=== PATIENT | female | born 2005 | race Caucasian/White ===

== ENCOUNTER 2024-04-03 17:12 | Emergency (ER) | payer OTHER, SELFPAY ==
[2024-04-03 17:12] VITALS: BMI 18.2
[2024-04-03 17:30] VITALS: BP 105/61
--- NOTE | 2024-04-03 20:31 | ED.GENMED ---
History of Present Illness
General
Chief Complaint: Abdominal Symptoms
Time Seen by Provider: 04/03/24 20:31
Travel History
Have you had any contact with someone who has COVID-19?: No
Do you have any symptoms of coronavirus? Fever > 100 degrees, chills, cough, shortness of breath, sore throat, loss of taste or smell, muscle aches, or headache?: No
History of Present Illness
History of Present Illness:
HPI: The patient presents with nausea and vomiting and periumbilical pain associated with some degree of diarrhea that started about 8 hours ago. She had a similar less severe episode a few weeks ago that was self-limited after a day. Mother also
reports that the mom has had 1 unexplained episode of pancreatitis when she was her age.
EXAM:
GENERAL: Well appearing in no significant distress
HEENT: Moist oral mucosa
CARDIOVASCULAR: No murmurs, normal heart rate, regular rhythm, No chest wall tenderness
PULMONARY: No respiratory distress, breath sounds are clear and equal
ABDOMEN: Soft with no peritoneal signs, mild periumbilical tenderness, no tenderness in the left lower or right lower quadrants, there is minimal tenderness in the right upper quadrant
NEUROLOGIC: Excellent strength all extremities, no coordination deficits
PSYCHIATRIC: Appropriate mental status, normal insight and judgement
EXTREMITIES: Nontender, no edema, moves all extremities equally
SKIN: No rash, no lesions
TIME OF INITIAL ENCOUNTER: 8:30 PM
NUMBER AND COMPLEXITY OF PROBLEMS ADDRESSED AT THE ENCOUNTER
� Chronic conditions affecting care: History of asthma
� Acute Exacerbation and/or Progression of Chronic Illness: This is an acute problem
� Differential Diagnosis includes: Gastroenteritis, viral syndrome, pancreatitis unlikely
AMOUNT AND/OR COMPLEXITY OF DATA TO BE REVIEWED AND ANALYZED
� I performed an independent evaluation of and my interpretation is:
EKG:
CT:
X-rays:
Laboratory Studies: White count 19.9, hemoglobin normal, chemistries unremarkable, lipase is 85, CMP normal
Other:
� Review of other/old records: I reviewed old records, the white count in 2013 was normal
� Clinical information was obtained by an independent historian: I spoke to the mother at bedside
� Prescriptions/Medications Considered but not given:
� Further testing considered but not performed: Given the leukocytosis, considered CT imaging however the patient is a young female with vomiting and diarrhea and overall has improved with conservative measures here.
RISK OF COMPLICATIONS AND/OR MORBIDITY OR MORTALITY OF PATIENT MANAGEMENT
� Social determinants of health affecting care: Lives at home
� Discussion with other providers:
� Escalation of care including admission/observation vs risk of discharge considered: The patient does report improvement after fluids, Toradol, Pepcid, and Zofran. I sent a prescription for both Zofran and Bentyl. She is
encouraged to follow-up with GI as well. I informed them of the leukocytosis however given the overall improvement with associated diarrhea as well, I suspect CT imaging will be of little benefit. If symptoms worsen, they are encouraged to return.
Past History
Social History
Tobacco: Non-smoker
Alcohol: None
Drug: None
Phy Exam
Physical Exam
Physical Exam:
See HPI
Course
Orders/Labs/Results
Orders:
Orders
04/03/24 20:37
0.9% Sodium Chloride 1000 ml [Nss] 1,000 ml IV BOLUS
Famotidine [Pepcid] 20 mg IV NOW STA
Ketorolac [Toradol] 15 mg IV NOW STA
Ondansetron Injectable [Zofran] 4 mg IV NOW STA
04/03/24 21:12
Complete Blood Count/With Diff Urgent
Comprehensive Metabolic Panel Urgent
HCG, Serum Qualitative Screen Urgent
Comment: ADD ON
Lipase Urgent
04/03/24 21:51
Add On- LAB Urgent
Tests Added?: hcg screen
Abnormal Lab Results
04/03/24
21:12
WBC 19.9 H 10^3/uL
(4.8-10.8)
MPV 10.7 H fL
(7.4-10.4)
Abs Immat Gran (auto) 0.1 H 10^3/uL
(0-0.05)
Absolute Neuts (auto) 18.8 H 10^3/uL
(1.4-6.5)
Absolute Lymphs (auto) 0.5 L 10^3/uL
(1.2-3.4)
Neutrophils % 94.2 H %
(42.2-75.2)
Lymphocytes % 2.7 L %
(20.5-51.1)
Monocytes % 1.6 L %
(1.7-9.3)
Glucose 114 H mg/dl
(70-99)
Total Protein 8.4 H g/dl
(6.3-8.2)
04/03/24 21:12
04/03/24 21:12
Vital Signs
Initial and Last Documented VS:
Initial Vital Signs
Temp Pulse Resp BP Pulse Ox
98.7 F 95 18 105/61 100
04/03/24 17:30 04/03/24 17:30 04/03/24 17:30 04/03/24 17:30 04/03/24 17:30
Last Documented Vital Signs
Temp Pulse Resp BP Pulse Ox
98.7 F 81 18 111/71 99
04/03/24 17:30 04/03/24 21:32 04/03/24 21:32 04/03/24 21:32 04/03/24 21:32
*Critical Care Note
Total Time (30-74mins, 75-104mins- exclusive of procedures): Not Applicable
ED Attending Note
-
Portions of this chart may have been created with voice recognition software.� Occasional wrong word or��sound alike� substitutions may have occurred due to the inherent limitations of voice recognition software.
Discharge Plan
Departure
Patient Disposition: Home (Routine Discharge)
Date of Disposition: 04/03/24
Time of Disposition: 22:32
Patient with high blood pressure during this ER visit?: No
Discharge Problem:
Abdominal pain
Instructions: Abdominal Pain
Prescriptions:
New
dicyclomine 10 mg capsule
10 mg PO TID PRN (Reason: pain) Qty: 21 0RF
ondansetron HCl 4 mg tablet
4 mg PO DAILY PRN (Reason: nausea and vomiting) Qty: 10 0RF
No Action
prednisone 50 MG tablet
50 mg PO DAILY Qty: 4 0RF
albuterol sulfate 1 PUFF HFA aerosol inhaler
2 puff inhalation R Q4HPRN PRN (Reason: shortness of breath) Qty: 1 0RF
Referrals:
Estrellita Villareal MD [Family Provider] -
Sonia Fuentes MD [Active] - Follow up in 2-3 days
Activity Restrictions/Additional Instructions:
I sent a prescription to your pharmacy for both Zofran (nausea medicine) as well as Bentyl (antispasmodic medicine). You could also try Pepcid and intermittent use of Motrin as well. I have also given you the contact information for a local GI
�DrEllie Fuentes. Your white blood cell count is high. If your symptoms worsen, please return here.
Interventions
Interventions:
*Risk Screen - Suicide Last Done: 04/03/24 17:30
*General Assessment Last Done: 04/03/24 17:30
*Neglect/Abuse Screening Last Done: 04/03/24 17:30
ED- Fall Risk Assessment Last Done: 04/03/24 21:28
*ED COVID-19 Vaccine History Last Done: 04/03/24 17:30
LW-Rfycvy-Haongplnoz Assessment Last Done: 04/03/24 21:28
Discharge Date and Time
Print Language: BELARUSIAN
[2024-04-03] MEDS: NSS 1000 IV (21:14)
[2024-04-03] MEDS: ZOFRAN 4 MG IV (21:18)
[2024-04-03] MEDS: TORADOL 15 MG IV (21:19)
[2024-04-03] MEDS: PEPCID 20 MG IV (21:22)
[2024-04-03 21:30] LABS: % Basophils 0.4 % (0-2); % Eosinophils 0.7 % (0-6); % Immature Granulocytes 0.4 % (0-0.5); % Lymphocytes 2.7 % (20.5-51.1); % Monocytes 1.6 % (1.7-9.3); % Neutrophils 94.2 % (42.2-75.2); Absolute Basophils 0.1 10^3/uL (0-0.2); Absolute Eosinophils 0.1 10^3/uL (0-0.7); Absolute Immature Granulocytes 0.1 10^3/uL (0-0.05); Absolute Lymphocytes 0.5 10^3/uL (1.2-3.4); Absolute Monocytes 0.3 10^3/uL (0.1-0.6); Absolute Neutrophils 18.8 10^3/uL (1.4-6.5); Hematocrit 39.2 % (37.0-47.0); Hemoglobin 13.5 g/dL (12.0-16.0); Mean Corp Hgb Conc. 34.4 g/dL (33.0-37.0); Mean Corpuscular Hgb 28.2 pg (27.0-31.0); Mean Platelet Volume 10.7 fL (7.4-10.4); Nucleated Red Blood Cells % 0 %; Platelet Count 352 10^3/uL (130-400); Red Blood Cell Count 4.78 10^6/uL (4.20-5.40); Red Cell Dist. Width 13.6 % (11.5-14.5); White Blood Cell Count 19.9 10^3/uL (4.8-10.8)
[2024-04-03 21:32] VITALS: BP 111/71
[2024-04-03 21:48] LABS: ALT (SGPT) 12 U/L (0-35); AST (SGOT) 29 U/L (14-36); Alkaline Phosphatase 92 U/L (38-126); Blood Urea Nitrogen 11 mg/dl (7-17); Calcium 10.2 mg/dl (8.4-10.2); Carbon Dioxide 24 mmol/L (22-30); Chloride 104 mmol/L (98-107); Estimated Creatinine Clearance 108 ml/min; Glucose 114 mg/dl (70-99); Sodium 141 mmol/L (135-145); Total Bilirubin 0.5 mg/dl (0.2-1.3); Total Protein 8.4 g/dl (6.3-8.2); eGFR > 60.00
[2024-04-03 21:49] LABS: Lipase 85 U/L (23-300)
[2024-04-03 22:17] LABS: HCG, Serum Qualitative Screen Negative
[2024-04-03 23:06] VITALS: BP 115/78
== END 2024-04-03 23:07 | disposition home or self-care (01) ==
LOC: EMR 17:12
PROVIDERS: Emergency Medicine; EMERGENCY PHYSICIAN Emergency Medicine; FAMILY PHYSICIAN Family Medicine
DX: R10.33 Periumbilical pain (principal); R11.2 Nausea with vomiting, unspecified; R19.7 Diarrhea, unspecified; D72.829 Elevated white blood cell count, unspecified; Z88.1 Allergy status to other antibiotic agents
CPT/HCPCS: 99284; 96374; 96375 ×2; 96361; 80053; 83690; 84703; 85025

== ENCOUNTER 2024-11-11 14:13 | Emergency (ER) | payer BC, SELFPAY ==
[2024-11-11 14:18] VITALS: BP 129/73
[2024-11-11 14:37] LABS: % Basophils 0.4 % (0-2); % Eosinophils 0.9 % (0-6); % Immature Granulocytes 0.3 % (0-0.5); % Lymphocytes 9.1 % (20.5-51.1); % Monocytes 4.5 % (1.7-9.3); % Neutrophils 84.8 % (42.2-75.2); Absolute Basophils 0.1 10^3/uL (0-0.2); Absolute Eosinophils 0.1 10^3/uL (0-0.7); Absolute Monocytes 0.5 10^3/uL (0.1-0.6); Absolute Neutrophils 9.6 10^3/uL (1.4-6.5); Hematocrit 38.2 % (37.0-47.0); Hemoglobin 12.8 g/dL (12.0-16.0); Mean Corp Hgb Conc. 33.5 g/dL (33.0-37.0); Mean Corpuscular Hgb 27.9 pg (27.0-31.0); Mean Corpuscular Volume 83.4 fL (81.0-99.0); Mean Platelet Volume 10.1 fL (7.4-10.4); Nucleated Red Blood Cells % 0 %; Platelet Count 355 10^3/uL (130-400); Red Blood Cell Count 4.58 10^6/uL (4.20-5.40); Red Cell Dist. Width 13.8 % (11.5-14.5); White Blood Cell Count 11.3 10^3/uL (4.8-10.8)
[2024-11-11 14:50] LABS: HCG, Serum Qualitative Screen Negative
[2024-11-11 14:52] LABS: ALT (SGPT) 12 U/L (0-35); AST (SGOT) 29 U/L (14-36); Albumin 5.1 g/dl (3.5-5.0); Alkaline Phosphatase 86 U/L (38-126); Blood Urea Nitrogen 9 mg/dl (7-17); Calcium 9.6 mg/dl (8.4-10.2); Carbon Dioxide 24 mmol/L (22-30); Chloride 104 mmol/L (98-107); Glucose 95 mg/dl (70-99); Lipase 119 U/L (23-300); Potassium 3.7 mmol/L (3.5-5.1); Sodium 141 mmol/L (135-145); Total Bilirubin 0.7 mg/dl (0.2-1.3); Total Protein 8.5 g/dl (6.3-8.2); eGFR > 60.00
--- NOTE | 2024-11-11 17:16 | ED.GENMED ---
History of Present Illness
General
Chief Complaint: Abdominal Pain
Source: patient and records (Prior ED visit in March 2024 for similar)
Exam Limitations: none
Time Seen by Provider: 11/11/24 17:02
Nursing documentation reviewed up to this point in time: agreed with
History of Present Illness
History of Present Illness:
19-year-old female with epigastric abdominal pain and nausea vomiting and diarrhea. Similar symptoms to prior. No trauma.
Past History
Past History
ED Past Medical History: Asthma
ED Past Surgical History: Orthopedic (Right ankle repair)
Social History
Tobacco: Non-smoker
Alcohol: None
Drug: None
Personal: Single
Review of Systems
Review of Systems
Allergies reviewed?: Yes
All Other Systems: Not applicable
Constitutional: Reports no symptoms
EENT: Reports no symptoms
Respiratory: Reports no symptoms
Cardiac: Reports no symptoms
ABD/GI: Reports abdominal pain, nausea, vomiting and diarrhea
: Reports no symptoms
Musculoskeletal: Reports no symptoms
Skin: Reports no symptoms
Neurological: Reports no symptoms
Endocrine: Reports no symptoms
Hematologic/Lymphatic: Reports no symptoms
Psychiatric: Reports no symptoms
Phy Exam
Physical Exam
Physical Exam:
Physical Exam
General: no apparent distress, not acutely ill
Neck: supple. no meningeal signs. normal posterior pharynx
Heart: s1/s2 regular rate and rhythm, no murmur. equal radial
pulses.
HEENT: Pupils equal round reactive to light, EOMI
Lungs: no acute respiratory distress. clear bilaterally
Abdomen: normal bowel sounds. Epigastric tenderness, no rebound or guarding. no CVAT
Neuro: alert and oriented. no focal neurological deficits cranial nerves II through XII intact
Skin: no rash
Psychiatric: well kept. interactive and cooperative
Extremities: no edema. no calf tenderness. negative homans. good distal pulses
Course
Orders/Labs/Results
Orders:
Orders
11/11/24 14:23
Test Result ONCE
11/11/24 14:28
CMP [Comprehensive Metabolic Panel] Urgent
Complete Blood Count/With Diff Urgent
HCG, Serum Qualitative Screen Urgent
Lipase Urgent
11/11/24 17:13
US Abdomen Complete/Upper Urgent
Comment:
Reason For Exam: epigastric abdominal pain
11/11/24 17:15
IV Insert/Care/Rem.- Treatment PRN
0.9% Sodium Chloride 500 ml [Nss] 500 ml IV BOLUS
Ketorolac [Toradol] 15 mg IV NOW STA
Ondansetron Injectable [Zofran] 4 mg IV NOW STA
Pantoprazole [Protonix IV] 40 mg IV NOW STA
Abnormal Lab Results
11/11/24
14:28
WBC 11.3 H 10^3/uL
(4.8-10.8)
Absolute Neuts (auto) 9.6 H 10^3/uL
(1.4-6.5)
Absolute Lymphs (auto) 1.0 L 10^3/uL
(1.2-3.4)
Neutrophils % 84.8 H %
(42.2-75.2)
Lymphocytes % 9.1 L %
(20.5-51.1)
Total Protein 8.5 H g/dl
(6.3-8.2)
Albumin 5.1 H g/dl
(3.5-5.0)
11/11/24 14:28
11/11/24 14:28
Vital Signs
Initial and Last Documented VS:
Initial Vital Signs
Temp Pulse Resp BP Pulse Ox
98.3 F 70 15 129/73 100
11/11/24 14:18 11/11/24 14:18 11/11/24 14:18 11/11/24 14:18 11/11/24 14:18
Last Documented Vital Signs
Temp Pulse Resp BP Pulse Ox
98.3 F 70 15 129/73 100
11/11/24 14:18 11/11/24 14:18 11/11/24 14:18 11/11/24 14:18 11/11/24 14:18
MDM/Problems Addressed
Differential Diagnosis Includes:
Cholecystitis, pancreatitis, gastritis
MDM/Problems Addressed:
19-year-old female with epigastric pain. Favor viral versus gastritis. Abdomen exam benign. No acute findings on ultrasound. Stable for discharge. Will place on Protonix, follow-up with gastroenterology and primary care.
Chronic conditions affecting care: Asthma
*Radiology
Radiology exam reviewed: radiology read reviewed (Ultrasound abdomen no acute findings)
*Pulse Oximetry
Patient hypoxic: no
*Critical Care Note
Total Time (30-74mins, 75-104mins- exclusive of procedures): Not Applicable
Data Reviewed
Further Testing Considered But Not Given:
CT abdomen pelvis not indicated
Patient Management
Social determinants of health affecting care: Living situation and Strong social support
Escalation/DeEscalation of care consider admission/obs:
Admit not indicated
ED Attending Note
-
Portions of this chart may have been created with voice recognition software.� Occasional wrong word or��sound alike� substitutions may have occurred due to the inherent limitations of voice recognition software.
Discharge Plan
Departure
Patient Disposition: Home (Routine Discharge)
Date of Disposition: 11/11/24
Time of Disposition: 18:57
Patient with high blood pressure during this ER visit?: Yes
Condition: Good
Discharge Problem:
Abdominal pain
Instructions: Abdominal Pain, BLOOD PRESSURE
Prescriptions:
New
pantoprazole [Protonix] 40 mg tablet,delayed release (DR/EC)
40 mg PO DAILY Qty: 30 0RF
No Action
prednisone 50 MG tablet
50 mg PO DAILY Qty: 4 0RF
albuterol sulfate 1 PUFF HFA aerosol inhaler
2 puff inhalation R Q4HPRN PRN (Reason: shortness of breath) Qty: 1 0RF
dicyclomine 10 mg capsule
10 mg PO TID PRN (Reason: pain) Qty: 21 0RF
ondansetron HCl 4 mg tablet
4 mg PO DAILY PRN (Reason: nausea and vomiting) Qty: 10 0RF
Referrals:
Estrellita Villareal MD [Family Provider] -
Sonia Fuentes MD [Active] - Call in 1-3 days for appt
Interventions
Interventions:
*Risk Screen - Suicide Last Done: 11/11/24 18:45
*Neglect/Abuse Screening Last Done: 11/11/24 18:45
*ED COVID-19 Vaccine History Last Done: 11/11/24 18:45
*Nursing Disposition Last Done: 11/11/24 19:24
NB-Cgsyqa-Rrnkkcwbir Assessment Last Done: 11/11/24 18:20
Discharge Date and Time
Print Language: BAHRAINI
[2024-11-11] MEDS: NSS 500 IV (17:30)
[2024-11-11] MEDS: TORADOL 15 MG IV (17:34)
[2024-11-11] MEDS: PROTONIX IV 40 MG IV (17:34)
[2024-11-11] MEDS: ZOFRAN 4 MG IV (17:35)
[2024-11-11 19:15] VITALS: BP 113/60
== END 2024-11-11 19:24 | disposition home or self-care (01) ==
LOC: EMR 14:13
PROVIDERS: Emergency Medicine; EMERGENCY PHYSICIAN Emergency Medicine; FAMILY PHYSICIAN Family Medicine
DX: R10.13 Epigastric pain (principal); J45.909 Unspecified asthma, uncomplicated
CPT/HCPCS: 99284; 96374; 96375; 76700; 80053; 83690; 84703; 85025